=== PATIENT | male | born 1995 | race Caucasian/White ===

== ENCOUNTER 2017-02-20 02:43 | Emergency (ER) | payer BC, MEDICAID ==
[~2017-02-20] VITALS: Ht 188 cm; Wt 95.0 kg
[~2017-02-20 02:43] MED LIST: Z.0.NO CURRENT MEDS
[2017-02-20 02:52] VITALS: BP 140/92; PULSE 99; RESP 18; TEMP 97.8; O2SAT 100
--- NOTE | 2017-02-20 03:22 | PD ---
HPI Chief Complaint: Alcohol/Drug Intoxication Time Seen by Provider: 03:15 Travel History International Travel<30 days: No Contact w/Intl Traveler<30days: No Traveled to known affect area: No History of Present Illness HPI 21-year-old male presents to the emergency department by private transportation the care of her friend for evaluation of depression. Patient reports that this evening he was drinking quite a bit of alcohol and as such she started to notice that the depression that he's been trying to ignore for the past year became increasingly prevalent and he admitted himself and now to the medical staff that he would like to harm himself. Patient has no specific plan except that he would drink excessive alcohol. Patient states that symptoms began approximate year ago after a relationship breakup. Prior to his breakup he had no history of mental health issues. Patient denies family history of mental health issues. Patient denies any chronic medical conditions. Patient denies ingestion of acetaminophen or aspirin products. Patient denies substance ingestion. Patient denies previous history of suicidal attempt. Patient is not homicidal. Patient did vomit approximately 6-7 times stomach contents. Friend at bedside states that he did tell the patient that he wanted to harm himself and that he wanted to get help and wanted to be brought to the hospital. Patient had been evaluated by EMS prior to arrival to the emergency department. [facility] Past Medical History Narrative Medical Asthma, eye surgery; no tobacco use, occasional alcohol use; nursing notes reviewed Asthma: Yes Diminished Hearing: No Genitourinary: Yes (HYDRONEPHROSIS) Immunizations Current: Yes Social History Alcohol Use: No Tobacco Use: No Substance Use: No Allergies-Medications (Allergen,Severity, Reaction): Coded Allergies: Penicillin (Verified Allergy, Severe, hives, 02/20/17) Amoxicillin (Verified Allergy, Mild, HIVES, 02/20/17) Reported Meds & Prescriptions Reported Meds & Active Scripts Active Review of Systems General / Constitutional: No: Fever HENT: No: Congestion Cardiovascular: No: Chest Pain or Discomfort Respiratory: No: Shortness of Breath Gastrointestinal: Positive: Vomiting, No: Abdominal Pain Genitourinary: No: Flank Pain Musculoskeletal: No: Pain Skin: No Rash Neurologic: No: Dizziness Psychiatric: Positive: Depression, Suicidal Ideations Hematologic/Lymphatic: No: Lymph Node Enlargement Physical Exam Narrative GENERAL: Well-developed well-nourished male in no acute distress no respiratory distress; GCS 15 SKIN: Warm and dry. HEAD: Atraumatic. Normocephalic. EYES: Pupils equal and round. No scleral icterus. No injection or drainage. ENT: No nasal bleeding or discharge. Mucous membranes pink and moist. NECK: Trachea midline. No JVD. CARDIOVASCULAR: Regular rate and rhythm. RESPIRATORY: No accessory muscle use. Clear to auscultation. Breath sounds equal bilaterally. GASTROINTESTINAL: Abdomen soft, non-tender, nondistended. Hepatic and splenic margins not palpable. MUSCULOSKELETAL: Extremities without clubbing, cyanosis, or edema. No obvious deformities. NEUROLOGICAL: Awake and alert. No obvious cranial nerve deficits. Motor grossly within normal limits. Five out of 5 muscle strength in the arms and legs. Normal speech. PSYCHIATRIC: Mildly depressed mood and affect. Data Data Last Documented VS Vital Signs Date Time Temp Pulse Resp B/P Pulse Ox O2 Delivery O2 Flow Rate FiO2 02/20/17 02:52 97.8 99 18 140/92 100 Orders Complete Blood Count With Diff (02/20/17 03:15) Comprehensive Metabolic Panel (02/20/17 03:15) Psych Screen (02/20/17 03:15) Drug Screen, Random Urine (02/20/17 03:15) Alcohol (Ethanol) (02/20/17 03:15) Sodium Chlor 0.9% 1000 Ml Inj (Ns 1000 M (02/20/17 04:00) Labs Laboratory Tests Test 02/20/17 02/20/17 03:20 03:55 White Blood Count 9.8 TH/MM3 Red Blood Count 6.11 MIL/MM3 Hemoglobin 17.8 GM/DL Hematocrit 53.6 % Mean Corpuscular Volume 87.7 FL Mean Corpuscular Hemoglobin 29.0 PG Mean Corpuscular Hemoglobin 33.1 % Concent Red Cell Distribution Width 12.5 % Platelet Count 243 TH/MM3 Mean Platelet Volume 8.3 FL Neutrophils (%) (Auto) 69.8 % Lymphocytes (%) (Auto) 22.3 % Monocytes (%) (Auto) 6.6 % Eosinophils (%) (Auto) 0.9 % Basophils (%) (Auto) 0.4 % Neutrophils # (Auto) 6.9 TH/MM3 Lymphocytes # (Auto) 2.2 TH/MM3 Monocytes # (Auto) 0.6 TH/MM3 Eosinophils # (Auto) 0.1 TH/MM3 Basophils # (Auto) 0.0 TH/MM3 CBC Comment DIFF FINAL Differential Comment Sodium Level 147 MEQ/L Potassium Level 3.5 MEQ/L Chloride Level 108 MEQ/L Carbon Dioxide Level 29.0 MEQ/L Anion Gap 10 MEQ/L Blood Urea Nitrogen 8 MG/DL Creatinine 0.85 MG/DL Estimat Glomerular Filtration 115 ML/MIN Rate Random Glucose 102 MG/DL Calcium Level 8.8 MG/DL Total Bilirubin 0.5 MG/DL Aspartate Amino Transf 13 U/L (AST/SGOT) Alanine Aminotransferase 19 U/L (ALT/SGPT) Alkaline Phosphatase 51 U/L Total Protein 8.1 GM/DL Albumin 4.8 GM/DL Ethyl Alcohol Level 196 MG/DL Urine Opiates Screen NEG Urine Barbiturates Screen NEG Urine Amphetamines Screen NEG Urine Benzodiazepines Screen NEG Urine Cocaine Screen NEG Urine Cannabinoids Screen NEG MDM Medical Decision Making Medical Screen Exam Complete: Yes Emergency Medical Condition: Yes Medical Record Reviewed: Yes Interpretation(s) Urine drug screen: negative Serum alcohol: 196 CBC is automated differential: Values in normal range except for hemoconcentration of hemoglobin hematocrit Complete metabolic panel: values are grossly normal range except for most likely hemoconcentration hyponatremia of 147; patient taking oral hydration well drinking ice/water Differential Diagnosis Depression, mood disorder, suicidal ideation, alcohol intoxication, substance ingestion Narrative Course Patient with admitted depression desirous of harming himself no previous suicidal attempts but reports at this point his only plan is to drink more alcohol; patient depressed about break up from a relationship with ongoing reported depression 1 year now presenting with escalating symptoms. At 4:55 AM patient is medically cleared for psych screening evaluation. Diagnosis Primary Impression: Depression Qualified Code: F32.9 - Depression, unspecified depression type Additional Impressions: Suicidal ideation Alcohol ingestion Nellie Scott MD Feb 20, 2017 03:22
[2017-02-20 03:42] LABS: AUTOMATED NEUTROPHIL # 6.9 TH/MM3 (1.8-7.7); BASOPHIL % 0.4 % (0.0-2.0); EOSINOPHIL # 0.1 TH/MM3 (0-0.4); EOSINOPHIL % 0.9 % (0.0-4.0); HEMATOCRIT 53.6 % (39.0-51.0); LYMPH % 22.3 % (9.0-44.0); LYMPHOCYTE # 2.2 TH/MM3 (1.0-4.8); MEAN CELL VOLUME 87.7 FL (80.0-100.0); MEAN CORPUSCULAR HGB CONC 33.1 % (32.0-36.0); MONO % 6.6 % (0.0-8.0); NEUT % 69.8 % (16.0-70.0); PLATELET COUNT 243 TH/MM3 (150-450); RED BLOOD COUNT 6.11 MIL/MM3 (4.50-5.90); RED CELL DISTRIBUTION WIDTH 12.5 % (11.6-17.2); WHITE BLOOD COUNT 9.8 TH/MM3 (4.0-11.0)
[2017-02-20 03:44] LABS: HEMO FLAGS DIFF FINAL
[2017-02-20 03:47] LABS: CHLORIDE 108 MEQ/L (98-107); POTASSIUM 3.5 MEQ/L (3.5-5.1); SODIUM (NA) 147 MEQ/L (136-145)
[2017-02-20 03:51] LABS: ANION GAP 10 MEQ/L (5-15); BLOOD UREA NITROGEN 8 MG/DL (7-18)
[2017-02-20 03:54] LABS: ALT (GPT) 19 U/L (9-52); AST (GOT) 13 U/L (15-39); GLOMERULAR FILTRATION RATE 115 ML/MIN (>89)
[2017-02-20 03:55] LABS: TOTAL BILIRUBIN ADULT 0.5 MG/DL (0.2-1.0)
[2017-02-20 03:57] LABS: ALKALINE PHOSPHATASE 51 U/L (45-117)
[2017-02-20] MEDS ORDERED: SODIUM CHLOR 0.9% 1000 ML INJ 1,000 ML IV ONE (04:00)
[2017-02-20 04:36] LABS: BARBITURATES, URINE NEG (NEG)
[2017-02-20 04:45] LABS: AMPHETAMINE, URINE NEG (NEG)
[2017-02-20 04:49] LABS: COCAINE, URINE NEG (NEG)
[2017-02-20 04:56] VITALS: BP 136/82; PULSE 78; RESP 18; O2SAT 100
[2017-02-20 05:46] VITALS: BP 130/79; PULSE 98; RESP 18; O2SAT 98
--- NOTE | 2017-02-20 08:38 | PD.CONS ---
Provisional Diagnosis Admission Date [place] I. Major depressive disorder single episode severe F 32.2 alcohol intoxication F 10.129 History of Present Illness Service Psychiatry Consult Requested By EDMS Reason for Consult EDMS Primary Care Physician Larry Brown MD HPI Patient is a 21-year-old white male who comes here initially voluntarily being brought in by his friend after a night of drinking and making a suicidal statement. Patient was Valenzuela acted in the emergency department by Dr. Sonia Valenzuela act dated February 20, 2017 at 3:20 AM. Blood alcohol level drawn at that time was 197 with a negative urine toxicology. Valenzuela act was reviewed by me stating that the patient reported that he wanted to harm himself was drinking alcohol though he had no plan. At the present time patient sitting quietly on his cot on E pod nurse Ela present throughout session. Patient is alert oriented calm and cooperative with us. Stating he was out with his friends drinking last night part of memories of the breakup with his longtime girlfriend of 4+ years. Working up about 1 year ago he's had depressive feelings since then though he states they are somewhat diminishing now. He acknowledges initial admit insomnia a.m. anergy, decreased appetite with a prior weight loss (he states he is gaining weight and appetite at this time) there is some decreased concentration and attention though that is improving somewhat now also. He did have some fleeting suicidal thoughts while at [facility] in [place] about jumping off of his fifth story dormitory though there is no intent with that. He denies voices or visions with that. He states he drinks rarely when he does drink he does drink to excess. He denies detox rehabilitation legal issues related to alcohol he denies other drug use. 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 He denies any prior psychiatric contact or hospitalizations of psychotropic medications. Denies any physical or sexual abuse by his family. He lives with his mother and stepfather and 2 siblings stepfather who has been his parenteral figures since he was 6 years old. His biological father was alcoholic and had issues with depression. Patient does denies suicidality homicidality voices or visions. I did talk the patient's mother who has noted the patient's depression since he returned home though she too feels it is somewhat lifting. It is my recommendation to her that she seek counseling for her son along with psychiatric services. He may benefit from a course of antidepressants. And of course he needs further assessment related to his substance use. At the present time patient does not meet Valenzuela act criteria I will lift the Valenzuela act as okay by psychiatry of the patient to be discharged when medically clear and stable by the emergency department physician. No Rx by me thinks the consult . Review of Systems ROS Limitations: Intoxication Except as stated in HPI: all other systems reviewed are Neg Past Family Social History Coded Allergies: Penicillin (Verified Allergy, Severe, hives, 02/20/17) Amoxicillin (Verified Allergy, Mild, HIVES, 02/20/17) Past Medical History Denies Discontinued Reported Medications Miscellaneous (No Current Meds) Misc Ref 0 11/29/09 Family History Patient biological father was alcoholic with depression. No other history of alcohol or drug use Social History Patient is single living with his family at the present time Patient's Strengths (min. 2) Patient young healthy cooperative able to access healthcare Physical Exam Patient seen screened in ED exam reviewed and agreed with Vital Signs Vital Signs Date Time Temp Pulse Resp B/P Pulse Ox O2 Delivery O2 Flow Rate FiO2 02/20/17 05:46 98 18 130/79 98 Room Air 02/20/17 02:52 97.8 Mental Status Examination Alert oriented thin slender white male somewhat thinning dark care pain, MS Contin on E pod nurse Ela present throughout session he is calm cooperative with good eye contact Appearance Clean and neat Speech: Unremarkable Orientation: x3 Memory: Unremarkable Thought Process: Logical, Organized Thought Content: Unremarkable Language [place] [employer] Good Hallucination Type: None Attention and Concentration: Good Suicidal Ideation: No (denies) Previous Suicide Attempts: No Homicidal Ideation: No Previous Homicide Attempts: No Insight: Fair Judgment: Poor Affect: Other (slight decrease range and intensity) Mood: Euthymic (to mildly dysphoric) Motor Activity: Normal gait Assessment & Plan Problem List: (1) Major depressive disorder, single episode, severe ICD Code: F32.2 (2) Alcohol intoxication ICD Code: F10.129 Assessment & Plan Estimated LOS: days patient does not meet Valenzuela criteria will lift Valenzuela act. As okay by psych for discharge when medically cleared and stable by the ED physician. No Rx by me. Strong recommendation for counseling in the community mental health follow-up in the community, and substance abuse assessment through Andre Marchman act Discharge Planning See above Request HC Surrog/Guard Advoc?: No Stalin Braga MD Feb 20, 2017 08:38
[2017-02-20 10:37] VITALS: BP 100/51
== END 2017-02-20 10:44 | disposition home or self-care (01) ==
LOC: PHED 02:43 → NEPE 10:44
DX: R45.851 Suicidal ideations (principal); F32.9 Major depressive disorder, single episode, unspecified; F10.129 Alcohol abuse with intoxication, unspecified; Y90.6 Blood alcohol level of 120-199 mg/100 ml
CPT/HCPCS: 80053; 80307; 85025; 96360; 99283; J7030